=== PATIENT | male | born 1955 | race Caucasian/White ===

== ENCOUNTER 2020-04-07 06:27 | Emergency (ER) | payer SELFPAY ==
[~2020-04-07] VITALS: Ht 182.9 cm; Wt 90.9 kg
[2020-04-07 06:32] VITALS: BP 117/82
== END 2020-04-07 06:44 | disposition home or self-care (01) ==
LOC: ER 06:27
DX: U07.1 COVID-19 (principal)
CPT/HCPCS: 87635; 99281